=== PATIENT | female | born 2000 | race Caucasian/White ===

== ENCOUNTER 2020-10-27 21:12 | Emergency (ER) | payer OTHER ==
[~2020-10-27] VITALS: Ht 154.9 cm; Wt 50.8 kg
[2020-10-27] MEDS ORDERED: AMITRIPTYLINE H10 M3 PO (21:29)
[2020-10-27] MEDS ORDERED: BIRTH CONTROL PATCH (21:30)
[2020-10-27] MEDS ORDERED: LINZESS72 MCG PO (21:30)
[2020-10-27 22:28] VITALS: BP 118/69
== END 2020-10-27 22:29 | disposition home or self-care (01) ==
LOC: M.ERS 21:12
DX: S93.401A Sprain of unspecified ligament of right ankle, initial encounter (principal); Z79.899 Other long term (current) drug therapy; Z88.1 Allergy status to other antibiotic agents; W18.39XA Other fall on same level, initial encounter; Y93.89 Activity, other specified; Y92.89 Other specified places as the place of occurrence of the external cause; Y99.8 Other external cause status